=== PATIENT | female | born 1980 | race Caucasian/White ===

== ENCOUNTER 2022-10-07 10:06 | Day surgery (SDC) | payer MEDICAID, OTHER ==
[~2022-10-07] VITALS: Ht 162.6 cm; Wt 132.0 kg
[~2022-10-07 10:06] MED LIST: BUPIVACAINE /PF 0.25% 30 ML VIAL INJ ONE; KETOROLAC TROMETHAMINE 30 MG VIAL ONE; LIDOCAINE/EPI 1% 1:100000 20 ML VIAL ONE; MIDAZOLAM HCL 2 MG/2 ML VIAL (VERSED) ONE; NS IRRIG SOLN 1000 ML IR ONE
[2022-10-07] MEDS ORDERED: PROPOFOL 200MG/ 20ML VIAL (DIPRIVAN) IV ONE (12:00)
[2022-10-07] MEDS ORDERED: ONDANSETRON HCL 4 MG/2 ML VIAL ONE (12:00)
[2022-10-07] MEDS ORDERED: NS 1000 ML IV.SOLN IV ONE (12:00)
[2022-10-07] MEDS ORDERED: SEVOFLURANE 15 MIN GAS INH ONE (12:00)
[2022-10-07] MEDS ORDERED: HYDROmorphone 1 MG/ML INJ. CARTRIDGE IVP PRN (12:30)
[2022-10-07] MEDS ORDERED: ONDANSETRON HCL 4 MG/2 ML VIAL IVP PRN (12:30)
[2022-10-07] MEDS ORDERED: KETOROLAC TROMETHAMINE 30 MG VIAL IVP PRN (12:30)
[2022-10-07] MEDS ORDERED: METOCLOPRAMIDE HCL 10 MG/2 ML VIAL IVP PRN (12:30)
[2022-10-07] MEDS ORDERED: ACETAMINOPHEN 500 MG TABLET PO ONE (12:30)
[2022-10-07] MEDS ORDERED: KETOROLAC TROMETHAMINE 30 MG VIAL ONE (13:00)
[2022-10-07 15:00] VITALS: BP_SYST 109
== END 2022-10-07 14:45 | disposition home or self-care (01) ==
LOC: SDS 10:06 → SMU 10:07 → SDS 14:45
PROVIDERS: ATTEND Obstetrics & Gynecology
DX: N92.1 Excessive and frequent menstruation with irregular cycle (principal)
CPT/HCPCS: 36415; 84703; 87081; 88305; J1885; J2405; J2704; J3465; J3490; J7030